=== PATIENT | male | born 1990 | race Caucasian/White ===

== ENCOUNTER → 2018-03-08 | Emergency (ER) | payer SELFPAY ==
[~2018-03-08] VITALS: Ht 170.2 cm; Wt 74.8 kg
== END | disposition home or self-care (01) ==
LOC: ER 21:36
DX: T20.10XA Burn of first degree of head, face, and neck, unspecified site, initial encounter (principal); T65.891A Toxic effect of other specified substances, accidental (unintentional), initial encounter; T20.50XA Corrosion of first degree of head, face, and neck, unspecified site, initial encounter; Y99.0 Civilian activity done for income or pay
CPT/HCPCS: 99282